=== PATIENT | female | born 2000 | race African-American/Black ===

== ENCOUNTER 2021-11-08 19:28 | Emergency (ER) | payer OTHER ==
[~2021-11-08] VITALS: Ht 167.6 cm; Wt 67.5 kg
[2021-11-08 19:29] VITALS: BP 121/80
[2021-11-08] MEDS ORDERED: KETOROLAC 30 MG/ML 1ML VIAL IM ONE (21:50)
== END 2021-11-08 22:57 | disposition home or self-care (01) ==
LOC: M ED 19:28
DX: Z04.1 Encounter for examination and observation following transport accident (principal); M51.27 Other intervertebral disc displacement, lumbosacral region
CPT/HCPCS: 70450; 72125; 72128; 72131; 96372; 99282; J1885

== ENCOUNTER → 2021-11-13 | Outpatient (CLI) | payer OTHER | LOC: M SOG 09:55 | PROVIDERS: ATTEND Orthopaedic Surgery | DX: M25.511 Pain in right shoulder (principal) ==

== ENCOUNTER 2022-05-05 14:11 | Emergency (ER) | payer OTHER ==
[~2022-05-05] VITALS: Ht 170.2 cm; Wt 68.4 kg
[2022-05-05] MEDS ORDERED: KETOROLAC 30 MG/ML 1ML VIAL IM ONE (16:45)
[2022-05-05] MEDS ORDERED: ONDANSETRON 4MG ORAL DISINTEGRATING TAB PO ONE (16:45)
[2022-05-05] MEDS ORDERED: ONDA4TAB6 PO (17:37)
[2022-05-05 17:48] VITALS: BP 99/68
== END 2022-05-05 17:51 | disposition home or self-care (01) ==
LOC: M ED 14:11
DX: S09.90XA Unspecified injury of head, initial encounter (principal); M79.10 Myalgia, unspecified site; V89.2XXA Person injured in unspecified motor-vehicle accident, traffic, initial encounter; J45.909 Unspecified asthma, uncomplicated; F32.A Depression, unspecified
CPT/HCPCS: 70450; 72125; 96372; 99283; J1885